=== PATIENT | female | born 1980 | race Caucasian/White ===

== ENCOUNTER 2016-08-27 20:31 | Emergency (ER) | payer OTHER ==
[~2016-08-27 20:31] MED LIST: [UNRECOGNIZED DRUG - CODE] PO
[2016-08-27 20:39] VITALS: TEMP 36.5
[2016-08-27] MEDS ORDERED: SODIUM CHLORIDE 0.9% 1000ML 1,000 ML IV STA (21:52)
[2016-08-27 22:27] LABS: BASO % 0.1 %; BASO ABS # 0.01 K/uL (0-0.2); COMPLETE YES; EOS % 0.7 %; HEMATOCRIT 37.5 % (37-47); IG% 0.3 %; LYMPH % 29.1 %; LYMPH ABS # 2.11 K/uL (1.2-3.4); MEAN CELL VOLUME 86.8 fL (80-100); MEAN CORPUSCULAR HEMOGLOBIN 30.3 pg (25-34); MEAN CORPUSCULAR HGB CONC 34.9 g/dl (32-36); MEAN PLATELET VOLUME 10.4 fL (7.4-10.4); MONO % 6.5 %; NEUT % 63.3 %; PLATELET COUNT 203 K/uL (130-400); RED BLOOD COUNT 4.32 M/uL (4.2-5.4); WHITE BLOOD COUNT 7.25 K/uL (4.8-10.8)
[2016-08-27 22:35] LABS: PROTHROMBIN TIME (PATIENT) 10.5 SECONDS (9.0-12.0)
[2016-08-27 22:48] LABS: MANUAL MICROSCOPIC REQUIRED? NO; REVIEW REQ? NO; URINE APPEARANCE CLEAR (CLEAR); URINE BILIRUBIN NEG (NEG); URINE COLOR YELLOW; URINE EPITHELIAL CELL AUTO 0-5 /lpf (0-5); URINE NITRITE NEG (NEG); URINE PH 6.5 (4.5-7.5); URINE SPECIFIC GRAVITY 1.005 (1.000-1.030); UROBILINOGEN NEG (NEG); ZZUR CULT IF INDIC CLEAN CATCH NO
[2016-08-27 22:50] LABS: ALT/SGPT 22 U/L (12-78); BLOOD UREA NITROGEN 5 mg/dl (7-18); BUN/CREATININE RATIO 7.7 (10-20); CALCIUM 8.8 mg/dl (8.5-10.1); CARBON DIOXIDE 27 mmol/L (21-32); CHLORIDE 106 mmol/L (98-107); CREATININE 0.66 mg/dl (0.60-1.20); GLUCOSE 94 mg/dl (70-99); POTASSIUM 3.5 mmol/L (3.5-5.1); SODIUM 141 mmol/L (136-145)
[2016-08-27 22:53] LABS: ALKALINE PHOSPHATASE 76 U/L (45-117); AST/SGOT 11 U/L (15-37)
[2016-08-27] MEDS ORDERED: B-COTAB18 PO (22:55)
[2016-08-27] MEDS ORDERED: MULT-513 PO (22:55)
[2016-08-27] MEDS ORDERED: SODIUM CHLORIDE 0.9% 500ML 500 ML IV STA (23:27)
[2016-08-27 23:28] LABS: LYME DISEASE AB IGG NEG (NEG); LYME DISEASE AB IGM NEG (NEG)
[2016-08-28] MEDS ORDERED: ACETAMINOPHEN 500 MG TAB PO STA (00:43)
[2016-08-28] MEDS ORDERED: SODIUM CHLORIDE 0.9% 1000ML 1,000 ML IV STA (00:43)
--- NOTE | 2016-08-28 01:36 | EMERGENCY ROOM VISIT NOTE ---
History First contact with patient: 21:42 Chief Complaint: WEAKNESS Stated Complaint: WEAK AFTER HAVING HER PERIOD Nursing Triage Summary: pt feels weak from having her period and bleeding a lot on her first day History of Present Illness The patient is a 36 year old female who presents to the Emergency Department by private vehicle for evaluation of weakness. She reports that she was diagnosed with Lyme disease recently. She had a port placed in a facility and [facility] for IV Rocephin. She completed a 21 day course of IV Rocephin for Lyme disease. She had been doing well until she started having her menses on Tuesday. She had heavy bleeding at that time. The bleeding has decreased, but she still has her period this point. She complains of no abdominal pain or discomfort. She reports some mild lightheadedness. The patient rates her current discomfort as a 0/10. She denies any fevers, chills, headaches, chest pain, palpitations, shortness of breath, nausea, vomiting, abdominal pain, hematochezia, melena, hematuria, or dysuria. Review of Systems A complete 10-point Review of Systems was discussed with the patient, with pertinent positives and negatives listed in the History of Present Illness. All remaining Review of Systems questions can be considered negative unless otherwise specified. Past Medical/Surgical History Medical Problems: (1) Poor eyesight Family History FHx: cancer No significant family history Social History Smoking Status: Never Smoker Smokeless Tobacco Use: No Alcohol Use: none Drug Use: none Marital Status: Housing Status: lives with family Occupation Status: other Current/Historical Medications Scheduled B-Complex Vitamins (Vitamin B Complex), 1 TAB PO DAILY Multivitamins/Minerals (Mvi With Minerals), 1 TAB PO DAILY Allergies Coded Allergies: No Known Allergies (Unverified , 08/27/16) Physical Exam Vital Signs Date Time Temp Pulse Resp B/P Pulse Ox O2 Delivery O2 Flow Rate FiO2 08/28/16 02:15 74 18 98/67 98 115/93 08/28/16 01:30 72 18 100/75 99 Room Air 08/28/16 00:58 78 18 100/71 96 Room Air 73 113/83 111 77/46 08/27/16 23:51 72 18 102/72 98 Room Air 08/27/16 22:17 66 16 105/73 98 Room Air 90 92/73 133 106/75 08/27/16 20:39 36.5 95 18 112/78 97 Room Air Pain Rating (0-10): 0 Physical Exam VITAL SIGNS - Vital signs and nursing notes were reviewed. GENERAL - 36-year-old female appearing her stated age who is in no acute distress. Communicates well with provider and answers questions appropriately. HEAD - NC/AT. EYES - PERRL with EOMI bilaterally. Sclera anicteric. Palpebral conjunctiva pink and moist with no injection noted. EARS - No deformities of external structures noted on gross examination bilaterally. No pain elicited with palpation of the tragus bilaterally. External auditory canals without discharge or otorrhea. Tympanic membranes pearly ambrocio without retraction or bulging. No fluid or purulent material visualized behind the TM. Handle of malleus, umbo, cone of light, pars tensa/ flaccid all easily visualized. NOSE - Midline and without cyanosis. No epistaxis or purulent drainage noted. Septum midline without deviation or septal hematoma noted. MOUTH/OROPHARYNX - Without perioral cyanosis. Buccal mucosa pink and moist and without leukoplakia. Tongue midline with equal elevation of palate bilaterally. No tonsillar hypertrophy, erythema, or exudates noted. NECK - Neck with FROM. Supple to palpation. No lymphadenopathy noted. No nuchal rigidity. LUNGS - Chest wall symmetric without accessory muscle use, intercostals retractions, or central cyanosis. Normal vesicular breath sounds CTA B/L. No wheezes, rales, or rhonchi appreciated. CARDIAC - RRR with S1/S2. No murmur, rubs, or gallops appreciated. ABDOMEN - Abdominal contour flat without pulsations or visible masses. BS normoactive all four quadrants. No tenderness, palpable masses, hepatosplenomegaly, or ascites noted. EXTREMITIES - No clubbing or peripheral cyanosis. No pretibial edema present. PSYCH - A&Ox3 and cooperates fully with examiner. Pt is very pleasant and interacts well with examiner. Medical Decision & Procedures ER Provider Diagnostic Interpretation: Radiological imaging and reports were reviewed by myself. Radiologist's Interpretation per [facility] as follows: US PELVIS: Patient declined transvaginal imaging 1.3 cm homogenous appearing endometrial stripe with trace fluid suggested at the fundal portion 1.8 cm dominant functional follicle right ovary Left ovary within limits Bilateral vascular ovarian flow is seen No evidence of adnexal mass or free fluid Laboratory Results 08/27/16 22:16 Red Blood Count 4.32, Mean Corpuscular Volume 86.8, Mean Corpuscular Hemoglobin 30.3, Mean Corpuscular Hemoglobin Concent 34.9, Mean Platelet Volume 10.4, Neutrophils (%) (Auto) 63.3, Lymphocytes (%) (Auto) 29.1, Monocytes (%) (Auto) 6.5, Eosinophils (%) (Auto) 0.7, Basophils (%) (Auto) 0.1, Neutrophils # (Auto) 4.59, Lymphocytes # (Auto) 2.11, Monocytes # (Auto) 0.47, Eosinophils # (Auto) 0.05, Basophils # (Auto) 0.01 08/27/16 22:16 Test 08/27/16 22:16 08/27/16 22:26 White Blood Count 7.25 K/uL (4.8-10.8) Red Blood Count 4.32 M/uL (4.2-5.4) Hemoglobin 13.1 g/dL (12.0-16.0) Hematocrit 37.5 % (37-47) Mean Corpuscular Volume 86.8 fL (80-100) Mean Corpuscular Hemoglobin 30.3 pg (25-34) Mean Corpuscular Hemoglobin Concent 34.9 g/dl (32-36) Platelet Count 203 K/uL (130-400) Mean Platelet Volume 10.4 fL (7.4-10.4) Neutrophils (%) (Auto) 63.3 % Lymphocytes (%) (Auto) 29.1 % Monocytes (%) (Auto) 6.5 % Eosinophils (%) (Auto) 0.7 % Basophils (%) (Auto) 0.1 % Neutrophils # (Auto) 4.59 K/uL (1.4-6.5) Lymphocytes # (Auto) 2.11 K/uL (1.2-3.4) Monocytes # (Auto) 0.47 K/uL (0.11-0.59) Eosinophils # (Auto) 0.05 K/uL (0-0.5) Basophils # (Auto) 0.01 K/uL (0-0.2) RDW Standard Deviation 43.2 fL (36.4-46.3) RDW Coefficient of Variation 13.6 % (11.5-14.5) Immature Granulocyte % (Auto) 0.3 % Immature Granulocyte # (Auto) 0.02 K/uL (0.00-0.02) Prothrombin Time 10.5 SECONDS (9.0-12.0) Prothromb Time International Ratio 1.0 (0.9-1.1) Activated Partial Thromboplast Time 26.4 SECONDS (21.0-31.0) Partial Thromboplastin Ratio 1.0 Anion Gap 8.0 mmol/L (3-11) Estimated GFR () 130.8 Estimated GFR (Non- 112.9 BUN/Creatinine Ratio 7.7 (10-20) Calcium Level 8.8 mg/dl (8.5-10.1) Total Bilirubin 0.4 mg/dl (0.2-1) Aspartate Amino Transf (AST/SGOT) 11 U/L (15-37) Alanine Aminotransferase (ALT/SGPT) 22 U/L (12-78) Alkaline Phosphatase 76 U/L (45-117) Total Protein 7.4 gm/dl (6.4-8.2) Albumin 3.7 gm/dl (3.4-5.0) Globulin 3.7 gm/dl (2.5-4.0) Albumin/Globulin Ratio 1.0 (0.9-2) Lyme Disease IgG Antibody NEG (NEG) Lyme Disease IgM Antibody NEG (NEG) Urine Color YELLOW Urine Appearance CLEAR (CLEAR) Urine pH 6.5 (4.5-7.5) Urine Specific [place] 1.005 (1.000-1.030) Urine Protein NEG (NEG) Urine Glucose (UA) NEG (NEG) Urine Ketones TRACE (NEG) Urine Occult Blood TRACE (NEG) Urine Nitrite NEG (NEG) Urine Bilirubin NEG (NEG) Urine Urobilinogen NEG (NEG) Urine Leukocyte Esterase NEG (NEG) Urine WBC (Auto) 0 /hpf (0-5) Urine RBC (Auto) 0-4 /hpf (0-4) Urine Hyaline Casts (Auto) 0 /lpf (0-5) Urine Epithelial Cells (Auto) 0-5 /lpf (0-5) Urine Bacteria (Auto) NEG (NEG) Urine Test NEG (NEG) Medications Administered Medications (Trade) Dose Ordered Sig/Marija Route Start Time Stop Time Status Last Admin Dose Admin Sodium Chloride 1,000 ml @ 125 mls/hr Q8H STAT IV 08/27/16 21:52 08/28/16 02:43 DC 08/27/16 22:29 125 MLS/HR Sodium Chloride (Nss 500ml) 500 ml @ 999 mls/hr Q31M STAT IV 08/27/16 23:27 08/27/16 23:57 DC 08/27/16 23:51 999 MLS/HR Acetaminophen 1000 mg 1,000 mg NOW STAT PO 08/28/16 00:43 08/28/16 00:44 DC 08/28/16 00:50 1,000 MG Sodium Chloride (Nss 1000ml) 1,000 ml @ 999 mls/hr Q1H1M STAT IV 08/28/16 00:43 08/28/16 01:43 DC 08/28/16 00:50 999 MLS/HR Heparin Sodium (Porcine) (Heparin 100 Unit/ml 5ml Flush) 5 ml STK-MED ONCE .ROUTE 08/28/16 02:11 08/28/16 02:12 DC 08/28/16 02:07 5 ML ED Course Patient was seen and evaluated by myself. Labs were drawn, saline lock in place. Patient was hydrated with 500 mL normal saline bolus. Pelvic ultrasound was obtained. Laboratory results demonstrate no acute leukocytosis, worrisome anemia, or bandemia. The patient has no significant electrolyte abnormalities. Urinalysis isn't stress infection. Lipase was negative. The patient was hydrated with an additional 1000 mL normal saline bolus. She was orthostatic. On review the patient, she feels better at this time, but complains of a mild headache. She was provided Tylenol orally. She reports a history of orthostasis for which she has been evaluated recently. Laboratory results and imaging studies were reviewed with the patient and family who acknowledges understanding. She has appointment on Tuesday with her specialists. She will keep this appointment. She will return to the emergency department in the setting of any change or worsening symptoms. Patient discharged home afebrile and in good condition. Medical Decision Given the patient's presentation and stated complaints, I did elect to perform the above-mentioned workup. The patient presents today with weakness after a period. She has no focal neurological deficits. Her exam is unremarkable otherwise. She is not anemic. She has no leukocytosis. Her abdomen is soft and nontender to palpation. Her ultrasound demonstrates no acute findings otherwise. Patient was orthostatic initially. She responded well to IV fluid hydration. Apparently, this is an ongoing issue. The patient will follow-up with your specialist on Tuesday. She will return for changing/worsening symptoms. Patient discharged home afebrile and in good condition. In the evaluation and treatment of this patient, the following differential diagnoses were considered: Hemorrhage, anemia, gastritis, gastroenteritis, Lyme disease, amongst others. Impression Primary Impression: Vaginal bleeding Additional Impression: Generalized weakness Departure Information Dispostion Home / Self-Care Condition GOOD Referrals No Doctor, Assigned (PCP) Patient Instructions [facility] [place] Additional Instructions You have been seen in the emergency department today for your generalized weakness and vaginal bleeding. Follow-up with your primary care provider from today's visit. Return for any changing or worsening symptoms. Problem Qualifiers
[2016-08-28 02:15] VITALS: BP 115/93; PULSE 74; O2SAT 98
--- NOTE | 2016-08-28 06:45 | DIAGNOSTIC IMAGING REPORT ---
PELVIC ULTRASOUND CLINICAL HISTORY: Vaginal bleeding. COMPARISON STUDY: None. TECHNIQUE: Transabdominal sonography of the pelvis was performed. The patient deferred transvaginal imaging. FINDINGS: The uterus measures 10.7 x 5.6 x 7 cm and is retroverted. The endometrium measures 1.3 cm in thickness. The right ovary measured 4.1 x 2.5 x 2.6 cm and contained a 1.8 cm dominant follicle. The left ovary measures 3.9 x 2 x 2.3 cm. There was no free fluid. Color flow is identified within each ovary. IMPRESSION: Unremarkable transabdominal pelvic ultrasound. Electronically signed by: Tavares Svaage M.D. 08/28/2016 6:44 AM Dictated Date/Time: 08/28/2016 6:42 AM
== END 2016-08-28 02:15 | disposition home or self-care (01) ==
LOC: C.EDB 20:32 → C.EDC 08-28 02:15
DX: N93.9 Abnormal uterine and vaginal bleeding, unspecified (principal); R53.1 Weakness; R42 Dizziness and giddiness